=== PATIENT | female | born 1930 | race Caucasian/White ===

== ENCOUNTER 2018-02-13 23:03 | Inpatient (IN) | payer OTHER, BC ==
[~2018-02-13] VITALS: Ht 162.6 cm; Wt 72.6 kg
[~2018-02-13 23:03] MED LIST: CO Q-10100 MG PO; LEVO-T175 MCG PO; LO-DOSE ASPIRIN81 M2 PO; MAG6464 M2 PO; NORVASC10 MG PO; OCUVITE TABLET1 EACH PO; SYNTHROID25 MCG PO; VITAMIN D2000 UNI1 PO; ZESTORETIC 20-1 EAC2 PO; ZOCOR20 MG PO; ZYLOPRIM300 MG PO
[2018-02-14 10:52] VITALS: BP 168/76
[2018-02-14 17:38] VITALS: BP 139/64
[2018-02-14 19:29] VITALS: BP 133/60
[2018-02-14 23:34] VITALS: BP 126/60
[2018-02-15 03:28] VITALS: BP 127/58
[2018-02-15 07:19] VITALS: BP 140/64
[2018-02-15 11:09] VITALS: BP 137/63
[2018-02-15 15:20] VITALS: BP 128/60
[2018-02-16 00:15] VITALS: BP 148/65
[2018-02-16 07:40] VITALS: BP 140/61
[2018-02-16] MEDS ORDERED: LITE COAT ASPI325 M1 PO (10:07)
[2018-02-16] MEDS ORDERED: HEPARIN SO5000 UNIT4 SC (14:30)
[2018-02-16] MEDS ORDERED: THERAGRAN1 TABLET PO (14:30)
[2018-02-16] MEDS ORDERED: PRAVACHOL40 MG PO (14:31)
[2018-02-16] MEDS ORDERED: PERCOCET 10/1 TABLET PO (14:31)
[2018-02-16] MEDS ORDERED: ZOFRAN4 MG PO (14:32)
[2018-02-16] MEDS ORDERED: TYLENOL REGULA325 MG PO (14:33)
[2018-02-16] MEDS ORDERED: NORCO 5/3251 TABLET PO (14:33)
== END 2018-02-16 13:31 | DRG 470 ==
LOC: ENRESERV 23:03 → 2SOUTH 02-14 10:04 → ENRESERV 02-14 16:12 → 3EAST 02-14 17:18
PROC: 0SRC0J9 Replacement of Right Knee Joint with Synthetic Substitute, Cemented, Open Approach (ICD-10-PCS; principal; 2018-02-14)
DX: M17.31 Unilateral post-traumatic osteoarthritis, right knee (principal); S82.141P Displaced bicondylar fracture of right tibia, subsequent encounter for closed fracture with malunion; W01.0XXD Fall on same level from slipping, tripping and stumbling without subsequent striking against object, subsequent encounter; M21.061 Valgus deformity, not elsewhere classified, right knee; M81.0 Age-related osteoporosis without current pathological fracture; I12.9 Hypertensive chronic kidney disease with stage 1 through stage 4 chronic kidney disease, or unspecified chronic kidney disease; N18.9 Chronic kidney disease, unspecified; M10.9 Gout, unspecified; E78.00 Pure hypercholesterolemia, unspecified; E03.9 Hypothyroidism, unspecified; Z60.2 Problems related to living alone; Z91.81 History of falling
CPT/HCPCS: C1713; J0131; J0690; J1170; J1644; J2405; J2795; J3010; J7050; L1820; S0020

== ENCOUNTER 2018-02-16 10:43 | Inpatient (IN) | payer OTHER, BC ==
[~2018-02-16] VITALS: Ht 162.6 cm; Wt 76.5 kg
[~2018-02-16 10:43] MED LIST changes: +LITE COAT ASPI325 M1 PO
[2018-02-16 13:55] VITALS: BP 147/65
[2018-02-16] MEDS ORDERED: HEPARIN SO5000 UNIT4 SC (14:30)
[2018-02-16] MEDS ORDERED: THERAGRAN1 TABLET PO (14:30)
[2018-02-16] MEDS ORDERED: PRAVACHOL40 MG PO (14:31)
[2018-02-16] MEDS ORDERED: PERCOCET 10/1 TABLET PO (14:31)
[2018-02-16] MEDS ORDERED: ZOFRAN4 MG PO (14:32)
[2018-02-16] MEDS ORDERED: TYLENOL REGULA325 MG PO (14:33)
[2018-02-16] MEDS ORDERED: NORCO 5/3251 TABLET PO (14:33)
[2018-02-16 15:21] VITALS: BP 148/67
[2018-02-17 00:11] VITALS: BP 145/66
[2018-02-17 05:33] VITALS: BP 165/74
[2018-02-17 05:58] LABS: BASOPHIL (%) 0.4 % (0-1); EOSINOPHIL (%) 1.5 % (0-5); EOSINOPHIL COUNT 0.1 K/uL (0-0.3); HEMATOCRIT 24.8 % (36.0-46.0); IMMATURE GRANULOCYTE (%) 0.3 % (0.0-0.7); LYMPHOCYTE (%) 14.2 % (15-42); LYMPHOCYTE COUNT 1.3 K/uL (1.0-2.8); MCHC 33.5 G/DL (30.0-36.0); MCV 92.5 FL (83-99); MONOCYTE (%) 14.4 % (3-12); MONOCYTE COUNT 1.3 K/uL (0-0.8); NEUTROPHIL (%) 69.2 % (45-76); NEUTROPHIL COUNT 6.2 K/uL (1.8-6.4); RBC DIS.WIDTH-CV 15.7 % (11.8-14.6); RBC DIS.WIDTH-SD 52.1 % (39-53)
[2018-02-17 06:00] LABS: RED BLOOD COUNT 2.68 M/uL (3.80-5.20)
[2018-02-17 06:01] LABS: HEMOGLOBIN 8.3 G/DL (11.9-15.5); PLATELET COUNT 192 K/uL (156-360)
[2018-02-17 06:20] LABS: ALBUMIN 2.8 G/DL (3.2-4.8); ALKALINE PHOSPHATASE 56 IU/L (3-129); ALT (GPT) 5 IU/L (3-49); AST (GOT) 14 IU/L (2-34); CHLORIDE 102 MEQ/L (99-109); GFR ESTIMATE (CALCULATED) 25 mL/min/; GLUCOSE 75 mg/dL (70-99); POTASSIUM 4.7 MEQ/L (3.7-5.4); SODIUM 135 MEQ/L (136-147); TOTAL BILIRUBIN 0.5 MG/DL (0.0-1.0); TOTAL PROTEIN 5.1 G/DL (6.4-8.3); UREA NITROGEN (BUN) 39 mg/dL (9-23)
[2018-02-17 16:19] VITALS: BP 127/68
[2018-02-18 04:03] VITALS: BP 158/70
[2018-02-18 16:11] VITALS: BP 148/67
[2018-02-18 17:00] LABS: APPEARANCE CLEAR ((CLEAR)); BILIRUBIN NEGATIVE; BLOOD NEGATIVE; COLOR YELLOW ((YELLOW)); GLUCOSE (STRIP) NEGATIVE; KETONES NEGATIVE; LEUKOCYTES NEGATIVE; NITRITE NEGATIVE; PROTEIN (STRIP) NEGATIVE; SPECIFIC GRAVITY 1.011 (1.000-1.030); UROBILINOGEN 0.2 MG/DL (0.2-1.0)
[2018-02-18 17:31] LABS: UR CREATININE CONCENTRATION 68.5 MG/DL
[2018-02-19 04:22] VITALS: BP 132/62
[2018-02-19 05:33] LABS: BASOPHIL (%) 0.2 % (0-1); EOSINOPHIL (%) 2.5 % (0-5); EOSINOPHIL COUNT 0.2 K/uL (0-0.3); HEMATOCRIT 24.3 % (36.0-46.0); HEMOGLOBIN 7.8 G/DL (11.9-15.5); IMMATURE GRANULOCYTE (%) 0.6 % (0.0-0.7); LYMPHOCYTE (%) 12.3 % (15-42); MCH 29.9 PG (29.0-34.0); MCHC 32.1 G/DL (30.0-36.0); MCV 93.1 FL (83-99); MONOCYTE (%) 10.6 % (3-12); MONOCYTE COUNT 0.9 K/uL (0-0.8); NEUTROPHIL (%) 73.8 % (45-76); NEUTROPHIL COUNT 6.1 K/uL (1.8-6.4); RBC DIS.WIDTH-CV 15.4 % (11.8-14.6); RBC DIS.WIDTH-SD 52.5 % (39-53); RED BLOOD COUNT 2.61 M/uL (3.80-5.20); WHITE BLOOD COUNT 8.2 K/uL (4.1-10.2)
[2018-02-19 05:35] LABS: PLATELET COUNT 252 K/uL (156-360)
[2018-02-19 06:47] LABS: ALBUMIN 2.6 G/DL (3.2-4.8); ALKALINE PHOSPHATASE 66 IU/L (3-129); ALT (GPT) 7 IU/L (3-49); CHLORIDE 102 MEQ/L (99-109); CREATININE 2.2 MG/DL (0.6-1.3); GFR ESTIMATE (CALCULATED) 22 mL/min/; MAGNESIUM 2.3 mg/dl (1.3-2.7); SODIUM 133 MEQ/L (136-147); TOTAL BILIRUBIN 0.5 MG/DL (0.0-1.0); TOTAL PROTEIN 5.3 G/DL (6.4-8.3); UREA NITROGEN (BUN) 48 mg/dL (9-23); URIC ACID 5.6 mg/dL (3.1-9.2)
[2018-02-19 06:48] LABS: GLUCOSE 111 mg/dL (70-99)
[2018-02-19 07:31] LABS: POTASSIUM 5.3 MEQ/L (3.7-5.4)
[2018-02-19 15:48] VITALS: BP 150/67
[2018-02-20] VITALS (9 sets, daily range): BP systolic 127–156; BP diastolic 59–69
[2018-02-20 06:02] LABS: BASOPHIL (%) 0.4 % (0-1); EOSINOPHIL (%) 3.2 % (0-5); EOSINOPHIL COUNT 0.3 K/uL (0-0.3); HEMATOCRIT 22.4 % (36.0-46.0); HEMOGLOBIN 7.3 G/DL (11.9-15.5); IMMATURE GRANULOCYTE (%) 0.2 % (0.0-0.7); LYMPHOCYTE (%) 12.1 % (15-42); MCH 30.3 PG (29.0-34.0); MCHC 32.6 G/DL (30.0-36.0); MCV 92.9 FL (83-99); MONOCYTE (%) 10.3 % (3-12); MONOCYTE COUNT 0.8 K/uL (0-0.8); NEUTROPHIL (%) 73.8 % (45-76); PLATELET COUNT 228 K/uL (156-360); RBC DIS.WIDTH-CV 15.1 % (11.8-14.6); RBC DIS.WIDTH-SD 51.9 % (39-53); RED BLOOD COUNT 2.41 M/uL (3.80-5.20); WHITE BLOOD COUNT 8.1 K/uL (4.1-10.2)
[2018-02-20 06:36] LABS: ALBUMIN 2.6 G/DL (3.4-5.0); CHLORIDE 101 MEQ/L (99-109); CREATININE 2.3 MG/DL (0.6-1.3); GFR ESTIMATE (CALCULATED) 21 mL/min/; GLOBULINS 2.7 G/DL (2.3-3.5); GLUCOSE 89 mg/dL (70-99); POTASSIUM 4.9 MEQ/L (3.7-5.4); SODIUM 130 MEQ/L (136-147); TOTAL PROTEIN 5.3 G/DL (6.4-8.2); UREA NITROGEN (BUN) 56 mg/dL (9-23)
[2018-02-20 07:03] LABS: IRON 11 MCG/DL (35-150); TRANSFERRIN (TIBC) 140.5 mg/dL (215-380); TRANSFERRIN SATUR. 8 % (20-55)
[2018-02-20 08:53] LABS: FERRITIN 71 NG/ML (10-291)
[2018-02-20 10:26] LABS: FOLIC ACID (FOLATE) > 22.0 NG/ML (5.0-22.0)
[2018-02-20 23:32] LABS: STOOL OCCULT BLD 1ST SPECIMEN NEGATIVE
[2018-02-21 05:10] VITALS: BP 134/58
[2018-02-21 06:57] LABS: BASOPHIL (%) 0.3 % (0-1); EOSINOPHIL (%) 0.4 % (0-5); HEMATOCRIT 28.4 % (36.0-46.0); IMMATURE GRANULOCYTE (%) 0.4 % (0.0-0.7); LYMPHOCYTE (%) 4.5 % (15-42); LYMPHOCYTE COUNT 0.5 K/uL (1.0-2.8); MCH 30.6 PG (29.0-34.0); MCHC 34.2 G/DL (30.0-36.0); MCV 89.6 FL (83-99); MONOCYTE (%) 11.8 % (3-12); MONOCYTE COUNT 1.3 K/uL (0-0.8); NEUTROPHIL (%) 82.6 % (45-76); NEUTROPHIL COUNT 9.3 K/uL (1.8-6.4); PLATELET COUNT 257 K/uL (156-360); RBC DIS.WIDTH-CV 14.8 % (11.8-14.6); RBC DIS.WIDTH-SD 48.8 % (39-53); WHITE BLOOD COUNT 11.2 K/uL (4.1-10.2)
[2018-02-21 06:58] LABS: HEMOGLOBIN 9.7 G/DL (11.9-15.5); RED BLOOD COUNT 3.17 M/uL (3.80-5.20)
[2018-02-21 08:42] LABS: CHLORIDE 100 MEQ/L (99-109); CREATININE 2.2 MG/DL (0.6-1.3); GFR ESTIMATE (CALCULATED) 22 mL/min/; PHOSPHORUS 2.7 mg/dL (2.5-4.9); POTASSIUM 5.6 MEQ/L (3.7-5.4); SODIUM 129 MEQ/L (136-147); THYROTROPIN (TSH) 1.2 MIU/L (0.4-5.5); UREA NITROGEN (BUN) 69 mg/dL (9-23)
[2018-02-21 08:43] LABS: GLUCOSE 148 mg/dL (70-99); MAGNESIUM 2.8 mg/dl (1.3-2.7)
[2018-02-21 15:46] VITALS: BP 99/48
[2018-02-21 16:44] VITALS: BP 128/56
[2018-02-21 20:47] VITALS: BP 128/60
[2018-02-22 05:36] VITALS: BP 145/58
[2018-02-22 06:19] LABS: BASOPHIL (%) 0.4 % (0-1); EOSINOPHIL (%) 2.4 % (0-5); EOSINOPHIL COUNT 0.3 K/uL (0-0.3); HEMATOCRIT 28.2 % (36.0-46.0); HEMOGLOBIN 9.2 G/DL (11.9-15.5); IMMATURE GRANULOCYTE (%) 0.3 % (0.0-0.7); LYMPHOCYTE (%) 7.7 % (15-42); LYMPHOCYTE COUNT 0.8 K/uL (1.0-2.8); MCH 29.8 PG (29.0-34.0); MCHC 32.6 G/DL (30.0-36.0); MCV 91.3 FL (83-99); MONOCYTE (%) 14.4 % (3-12); MONOCYTE COUNT 1.5 K/uL (0-0.8); NEUTROPHIL (%) 74.8 % (45-76); NEUTROPHIL COUNT 7.7 K/uL (1.8-6.4); PLATELET COUNT 295 K/uL (156-360); RBC DIS.WIDTH-SD 50.1 % (39-53); RED BLOOD COUNT 3.09 M/uL (3.80-5.20); WHITE BLOOD COUNT 10.3 K/uL (4.1-10.2)
[2018-02-22 06:38] LABS: CHLORIDE 99 MEQ/L (99-109); GFR ESTIMATE (CALCULATED) 18 mL/min/; SODIUM 130 MEQ/L (136-147); UREA NITROGEN (BUN) 81 mg/dL (9-23)
[2018-02-22 06:39] LABS: CREATININE 2.7 MG/DL (0.6-1.3); GLUCOSE 90 mg/dL (70-99)
[2018-02-22 13:35] LABS: ALBUMIN 2.53 G/DL (3.6-4.9); ALPHA-1 GLOBULIN 0.55 G/DL (0.15-0.40); ALPHA-2 GLOBULIN 0.89 G/DL (0.45-0.85); GAMMA-GLOBULIN 0.54 G/DL (0.60-1.35)
[2018-02-22 15:44] VITALS: BP 102/50
[2018-02-22 22:00] VITALS: BP 113/56
[2018-02-23 05:09] VITALS: BP 136/62
[2018-02-23 06:34] LABS: BASOPHIL (%) 0.4 % (0-1); EOSINOPHIL (%) 2.2 % (0-5); EOSINOPHIL COUNT 0.2 K/uL (0-0.3); HEMATOCRIT 25.6 % (36.0-46.0); HEMOGLOBIN 8.5 G/DL (11.9-15.5); IMMATURE GRANULOCYTE (%) 0.4 % (0.0-0.7); LYMPHOCYTE (%) 8.6 % (15-42); LYMPHOCYTE COUNT 0.9 K/uL (1.0-2.8); MCH 30.2 PG (29.0-34.0); MCHC 33.2 G/DL (30.0-36.0); MCV 91.1 FL (83-99); MONOCYTE (%) 13.3 % (3-12); MONOCYTE COUNT 1.4 K/uL (0-0.8); NEUTROPHIL (%) 75.1 % (45-76); NEUTROPHIL COUNT 7.8 K/uL (1.8-6.4); PLATELET COUNT 286 K/uL (156-360); RBC DIS.WIDTH-CV 14.6 % (11.8-14.6); RBC DIS.WIDTH-SD 49.2 % (39-53); RED BLOOD COUNT 2.81 M/uL (3.80-5.20); WHITE BLOOD COUNT 10.4 K/uL (4.1-10.2)
[2018-02-23 07:04] LABS: CHLORIDE 101 MEQ/L (99-109); CREATININE 2.9 MG/DL (0.6-1.3); GFR ESTIMATE (CALCULATED) 16 mL/min/; GLUCOSE 78 mg/dL (70-99); POTASSIUM 4.9 MEQ/L (3.7-5.4); SODIUM 129 MEQ/L (136-147); UREA NITROGEN (BUN) 91 mg/dL (9-23)
[2018-02-23 07:05] LABS: PHOSPHORUS 4.6 mg/dL (2.5-4.9)
== END 2018-02-23 11:51 | DRG 560 ==
LOC: 3WEST 10:43 → CANRESERV 02-23 11:15 → ENRESERV 02-23 11:15 → 3WEST 02-23 11:51 → ENPENDDIS 03-03
PROVIDERS: Internal Medicine Nephrology; Psychiatry & Neurology Neurology
PROC: F07M0ZZ Range of Motion and Joint Mobility Treatment of Musculoskeletal System - Whole Body (ICD-10-PCS; principal; 2018-02-16)
PROC: 30233N1 Transfusion of Nonautologous Red Blood Cells into Peripheral Vein, Percutaneous Approach (ICD-10-PCS; 2018-02-20)
DX: Z47.1 Aftercare following joint replacement surgery (principal); Z96.651 Presence of right artificial knee joint; R27.0 Ataxia, unspecified; G89.18 Other acute postprocedural pain; M79.604 Pain in right leg; N17.8 Other acute kidney failure; N14.1 Nephropathy induced by other drugs, medicaments and biological substances; T50.2X5A Adverse effect of carbonic-anhydrase inhibitors, benzothiadiazides and other diuretics, initial encounter; D62 Acute posthemorrhagic anemia; D50.9 Iron deficiency anemia, unspecified; I12.9 Hypertensive chronic kidney disease with stage 1 through stage 4 chronic kidney disease, or unspecified chronic kidney disease; N18.3 Chronic kidney disease, stage 3 (moderate); E87.1 Hypo-osmolality and hyponatremia; D63.1 Anemia in chronic kidney disease; E87.5 Hyperkalemia; R41.0 Disorientation, unspecified; T40.2X5A Adverse effect of other opioids, initial encounter; E03.9 Hypothyroidism, unspecified; M10.9 Gout, unspecified; M17.31 Unilateral post-traumatic osteoarthritis, right knee; S82.14 Bicondylar fracture of tibia; R01.1 Cardiac murmur, unspecified; E78.5 Hyperlipidemia, unspecified; I25.10 Atherosclerotic heart disease of native coronary artery without angina pectoris; K59.00 Constipation, unspecified; I65.29 Occlusion and stenosis of unspecified carotid artery; Z79.82 Long term (current) use of aspirin; Z90.710 Acquired absence of both cervix and uterus; Z91.81 History of falling
CPT/HCPCS: 76770; 80048; 80053; 81003; 82272; 82533 91; 82550; 82570; 82607; 82728; 82746; 83540; 83735; 83883 90; 83935; 84100; 84156; 84165; 84300; 84443; 84466; 84550; 84999; 85025; 86850; 86900; 86901; 86920; 87493; 93971; 97110 GO; 97530 GP; J1644; J1756; J7030; J7050; P9016

== ENCOUNTER 2018-02-23 10:28 | Inpatient (IN) | payer OTHER, BC ==
[~2018-02-23] VITALS: Ht 162.6 cm; Wt 79.8 kg
[~2018-02-23 10:28] MED LIST changes: +HEPARIN SO5000 UNIT4 SC; +NORCO 5/3251 TABLET PO; +PERCOCET 10/1 TABLET PO; +PRAVACHOL40 MG PO; +THERAGRAN1 TABLET PO; +TYLENOL REGULA325 MG PO; +ZOFRAN4 MG PO
[2018-02-23 12:47] LABS: STOOL OCCULT BLD 1ST SPECIMEN POSITIVE
[2018-02-23 14:07] VITALS: BP 112/56
[2018-02-23 17:05] LABS: BASOPHIL (%) 0.4 % (0-1); BASOPHIL COUNT 0.1 K/uL (0-0.1); EOSINOPHIL (%) 1.2 % (0-5); EOSINOPHIL COUNT 0.2 K/uL (0-0.3); HEMATOCRIT 28.6 % (36.0-46.0); HEMOGLOBIN 9.4 G/DL (11.9-15.5); IMMATURE GRANULOCYTE (%) 0.6 % (0.0-0.7); LYMPHOCYTE (%) 7.5 % (15-42); LYMPHOCYTE COUNT 0.9 K/uL (1.0-2.8); MCHC 32.9 G/DL (30.0-36.0); MCV 91.4 FL (83-99); MONOCYTE (%) 8.9 % (3-12); MONOCYTE COUNT 1.1 K/uL (0-0.8); NEUTROPHIL (%) 81.4 % (45-76); NEUTROPHIL COUNT 10.1 K/uL (1.8-6.4); PLATELET COUNT 343 K/uL (156-360); RBC DIS.WIDTH-CV 14.7 % (11.8-14.6); RBC DIS.WIDTH-SD 49.1 % (39-53); RED BLOOD COUNT 3.13 M/uL (3.80-5.20); WHITE BLOOD COUNT 12.4 K/uL (4.1-10.2)
[2018-02-23 19:48] VITALS: BP 110/52
[2018-02-23 23:38] VITALS: BP 107/52
[2018-02-24 04:32] VITALS: BP 98/47
[2018-02-24 06:18] LABS: BASOPHIL (%) 0.4 % (0-1); EOSINOPHIL (%) 1.9 % (0-5); EOSINOPHIL COUNT 0.2 K/uL (0-0.3); HEMOGLOBIN 8.2 G/DL (11.9-15.5); IMMATURE GRANULOCYTE (%) 0.8 % (0.0-0.7); MCH 29.9 PG (29.0-34.0); MCHC 32.8 G/DL (30.0-36.0); MCV 91.2 FL (83-99); MONOCYTE (%) 9.6 % (3-12); MONOCYTE COUNT 0.9 K/uL (0-0.8); NEUTROPHIL (%) 76.3 % (45-76); NEUTROPHIL COUNT 7.2 K/uL (1.8-6.4); PLATELET COUNT 286 K/uL (156-360); RBC DIS.WIDTH-CV 14.8 % (11.8-14.6); RED BLOOD COUNT 2.74 M/uL (3.80-5.20); WHITE BLOOD COUNT 9.5 K/uL (4.1-10.2)
[2018-02-24 06:38] LABS: CHLORIDE 101 MEQ/L (99-109); GFR ESTIMATE (CALCULATED) 16 mL/min/; GLUCOSE 80 mg/dL (70-99); POTASSIUM 4.9 MEQ/L (3.7-5.4); SODIUM 131 MEQ/L (136-147); UREA NITROGEN (BUN) 95 mg/dL (9-23)
[2018-02-24 08:18] VITALS: BP 132/60
[2018-02-24 14:12] VITALS: BP 125/60
[2018-02-24 16:15] VITALS: BP 128/60
[2018-02-24 20:27] VITALS: BP 120/56
[2018-02-25] VITALS (7 sets, daily range): BP systolic 114–123; BP diastolic 56–66
[2018-02-25 06:41] LABS: BASOPHIL (%) 0.5 % (0-1); BASOPHIL COUNT 0.1 K/uL (0-0.1); EOSINOPHIL (%) 1.6 % (0-5); EOSINOPHIL COUNT 0.2 K/uL (0-0.3); HEMATOCRIT 26.7 % (36.0-46.0); HEMOGLOBIN 8.8 G/DL (11.9-15.5); IMMATURE GRANULOCYTE (%) 1.1 % (0.0-0.7); LYMPHOCYTE (%) 9.5 % (15-42); LYMPHOCYTE COUNT 0.9 K/uL (1.0-2.8); MCH 30.1 PG (29.0-34.0); MCV 91.4 FL (83-99); MONOCYTE COUNT 0.7 K/uL (0-0.8); NEUTROPHIL (%) 80.3 % (45-76); NEUTROPHIL COUNT 7.5 K/uL (1.8-6.4); PLATELET COUNT 336 K/uL (156-360); RBC DIS.WIDTH-CV 14.8 % (11.8-14.6); RBC DIS.WIDTH-SD 50.4 % (39-53); RED BLOOD COUNT 2.92 M/uL (3.80-5.20); WHITE BLOOD COUNT 9.3 K/uL (4.1-10.2)
[2018-02-25 06:45] LABS: INTER. NORMALIZED RATIO 1.1
[2018-02-25 07:04] LABS: CHLORIDE 102 MEQ/L (99-109); CREATININE 2.7 MG/DL (0.6-1.3); GFR ESTIMATE (CALCULATED) 18 mL/min/; GLUCOSE 78 mg/dL (70-99); MAGNESIUM 2.8 mg/dl (1.3-2.7); POTASSIUM 4.8 MEQ/L (3.7-5.4); SODIUM 132 MEQ/L (136-147); UREA NITROGEN (BUN) 92 mg/dL (9-23)
[2018-02-25 07:06] LABS: C4 COMPLEMENT 29 MG/DL (10-40)
[2018-02-25 07:07] LABS: ALBUMIN 2.4 G/DL (3.2-4.8); ALKALINE PHOSPHATASE 65 IU/L (3-129); ALT (GPT) 9 IU/L (3-49); AST (GOT) 13 IU/L (2-34); CHLORIDE 102 MEQ/L (99-109); CREATININE 2.7 MG/DL (0.6-1.3); GFR ESTIMATE (CALCULATED) 18 mL/min/; GLUCOSE 79 mg/dL (70-99); POTASSIUM 4.8 MEQ/L (3.7-5.4); SODIUM 133 MEQ/L (136-147); TOTAL BILIRUBIN 0.4 MG/DL (0.0-1.0); TOTAL PROTEIN 4.7 G/DL (6.4-8.3); UREA NITROGEN (BUN) 92 mg/dL (9-23)
[2018-02-26 03:03] VITALS: BP 120/58
[2018-02-26 06:12] LABS: BASOPHIL (%) 0.5 % (0-1); BASOPHIL COUNT 0.1 K/uL (0-0.1); EOSINOPHIL (%) 1.3 % (0-5); EOSINOPHIL COUNT 0.1 K/uL (0-0.3); HEMATOCRIT 25.4 % (36.0-46.0); HEMOGLOBIN 8.6 G/DL (11.9-15.5); IMMATURE GRANULOCYTE (%) 2.7 % (0.0-0.7); LYMPHOCYTE (%) 12.4 % (15-42); LYMPHOCYTE COUNT 1.2 K/uL (1.0-2.8); MCH 30.9 PG (29.0-34.0); MCHC 33.9 G/DL (30.0-36.0); MCV 91.4 FL (83-99); MONOCYTE (%) 9.5 % (3-12); NEUTROPHIL (%) 73.6 % (45-76); NEUTROPHIL COUNT 7.4 K/uL (1.8-6.4); PLATELET COUNT 314 K/uL (156-360); RBC DIS.WIDTH-CV 14.7 % (11.8-14.6); RBC DIS.WIDTH-SD 48.8 % (39-53); RED BLOOD COUNT 2.78 M/uL (3.80-5.20)
[2018-02-26 06:35] LABS: ALBUMIN 2.5 G/DL (3.2-4.8); CHLORIDE 103 MEQ/L (99-109); CREATININE 2.5 MG/DL (0.6-1.3); GFR ESTIMATE (CALCULATED) 19 mL/min/; GLUCOSE 86 mg/dL (70-99); PHOSPHORUS 3.8 mg/dL (2.5-4.9); POTASSIUM 4.8 MEQ/L (3.7-5.4); SODIUM 130 MEQ/L (136-147); UREA NITROGEN (BUN) 85 mg/dL (9-23)
[2018-02-26 08:04] VITALS: BP 150/65
[2018-02-26 15:46] VITALS: BP 123/65
[2018-02-26 19:51] VITALS: BP 120/56
[2018-02-27 00:28] VITALS: BP 150/67
[2018-02-27 06:23] LABS: HEMATOCRIT 26.7 % (36.0-46.0); HEMOGLOBIN 8.9 G/DL (11.9-15.5); MCH 30.7 PG (29.0-34.0); MCHC 33.3 G/DL (30.0-36.0); MCV 92.1 FL (83-99); PLATELET COUNT 334 K/uL (156-360); RBC DIS.WIDTH-CV 15.1 % (11.8-14.6); RBC DIS.WIDTH-SD 50.7 % (39-53); WHITE BLOOD COUNT 10.8 K/uL (4.1-10.2)
[2018-02-27 06:49] LABS: ALBUMIN 2.5 G/DL (3.2-4.8); CHLORIDE 105 MEQ/L (99-109); CREATININE 2.2 MG/DL (0.6-1.3); GFR ESTIMATE (CALCULATED) 22 mL/min/; GLUCOSE 86 mg/dL (70-99); IRON 43 MCG/DL (35-150); PHOSPHORUS 3.1 mg/dL (2.5-4.9); POTASSIUM 4.8 MEQ/L (3.7-5.4); SODIUM 135 MEQ/L (136-147); TRANSFERRIN SATUR. 32 % (20-55); UREA NITROGEN (BUN) 75 mg/dL (9-23)
[2018-02-27 06:58] LABS: ANISOCYTOSIS 1+; ATYPICAL LYMPHOCYTE 0.9 %; BASOPH.STIPPLING 1+; BASOPHILS 1.7 %; EOSINOPHIL ABS CT 0.2; EOSINOPHILS 1.7 % (0-5.0); LYMPHOCYTES 15.5 % (15.0-45.0); MACROCYTES 1+; METAMYELOCYTES 0.9 %; MONOCYTES 3.5 % (0-9.0); MYELOCYTES 1.7 %; PLAT.SUFFICIENCY ADEQUATE; POIKILOCYTOSIS 1+; SEG.NEUTROPHILS 74.1 % (46.0-76.0)
[2018-02-27 08:58] VITALS: BP 179/68
[2018-02-27 17:00] VITALS: BP 151/62
[2018-02-27 17:28] LABS: GLOMERULAR BASEMENT MEMB ABY+ <1.0 AI (<1.0)
[2018-02-27 23:55] VITALS: BP 140/64
[2018-02-28 06:59] LABS: BASOPHIL (%) 0.6 % (0-1); BASOPHIL COUNT 0.1 K/uL (0-0.1); EOSINOPHIL COUNT 0.1 K/uL (0-0.3); HEMATOCRIT 27.4 % (36.0-46.0); HEMOGLOBIN 9.1 G/DL (11.9-15.5); IMMATURE GRANULOCYTE (%) 4.6 % (0.0-0.7); LYMPHOCYTE (%) 11.3 % (15-42); LYMPHOCYTE COUNT 1.4 K/uL (1.0-2.8); MCH 30.4 PG (29.0-34.0); MCHC 33.2 G/DL (30.0-36.0); MCV 91.6 FL (83-99); MONOCYTE (%) 11.5 % (3-12); MONOCYTE COUNT 1.4 K/uL (0-0.8); NEUTROPHIL COUNT 8.6 K/uL (1.8-6.4); PLATELET COUNT 370 K/uL (156-360); RBC DIS.WIDTH-CV 15.3 % (11.8-14.6); RBC DIS.WIDTH-SD 50.3 % (39-53); RED BLOOD COUNT 2.99 M/uL (3.80-5.20)
[2018-02-28 07:22] LABS: ALBUMIN 2.6 G/DL (3.2-4.8); CHLORIDE 108 MEQ/L (99-109); GFR ESTIMATE (CALCULATED) 30 mL/min/; GLUCOSE 82 mg/dL (70-99); PHOSPHORUS 2.8 mg/dL (2.5-4.9); POTASSIUM 5.3 MEQ/L (3.7-5.4); SODIUM 139 MEQ/L (136-147); UREA NITROGEN (BUN) 53 mg/dL (9-23)
[2018-02-28 07:25] LABS: CREATININE 1.7 MG/DL (0.6-1.3)
[2018-02-28 07:32] VITALS: BP 143/61
[2018-02-28 15:55] VITALS: BP 140/59
[2018-02-28] MEDS ORDERED: CARVEDILOL12.5 MG PO (17:03)
[2018-02-28] MEDS ORDERED: AMLODIPINE BESYL5 MG PO (17:04)
[2018-02-28] MEDS ORDERED: PANTOPRAZOLE SO40 MG PO (17:05)
[2018-02-28] MEDS ORDERED: TYLENOL REGULA325 MG PO (17:05)
[2018-02-28] MEDS ORDERED: OXYCODONE HCL5 MG PO (17:05)
[2018-02-28 22:47] LABS: Neutrophil Cytoplasmic Aby Negative (Negative)
== END 2018-02-28 17:44 | DRG 378 ==
LOC: ENRESERV 10:28 → 3EAST 10:28 → ENRESERV 11:15 → 3EAST 12:00
PROVIDERS: Internal Medicine Gastroenterology; Internal Medicine Nephrology
PROC: 0DB68ZX Excision of Stomach, Via Natural or Artificial Opening Endoscopic, Diagnostic (ICD-10-PCS; principal; 2018-02-24)
DX: K25.4 Chronic or unspecified gastric ulcer with hemorrhage (principal); D62 Acute posthemorrhagic anemia; E87.1 Hypo-osmolality and hyponatremia; N17.9 Acute kidney failure, unspecified; K20.8 Other esophagitis; M10.9 Gout, unspecified; D50.0 Iron deficiency anemia secondary to blood loss (chronic); E03.9 Hypothyroidism, unspecified; E78.5 Hyperlipidemia, unspecified; I12.9 Hypertensive chronic kidney disease with stage 1 through stage 4 chronic kidney disease, or unspecified chronic kidney disease; I25.10 Atherosclerotic heart disease of native coronary artery without angina pectoris; I65.29 Occlusion and stenosis of unspecified carotid artery; K44.9 Diaphragmatic hernia without obstruction or gangrene; M19.90 Unspecified osteoarthritis, unspecified site; N18.3 Chronic kidney disease, stage 3 (moderate); K29.61 Other gastritis with bleeding; E66.9 Obesity, unspecified; W19.XXXS Unspecified fall, sequela; R19.5 Other fecal abnormalities; Z90.710 Acquired absence of both cervix and uterus; Z96.651 Presence of right artificial knee joint; S82.14 Bicondylar fracture of tibia; Z68.30 Body mass index [BMI] 30.0-30.9, adult
CPT/HCPCS: 80048; 80053; 80069; 82272; 83520 90; 83540; 83735; 84100; 84466; 85025; 85025 91; 85027; 85610; 86021 90; 86038; 86160; 86235; 88305; 88342 TC; C9113; J7030

== ENCOUNTER 2018-02-28 16:35 | Inpatient (IN) | payer OTHER, BC ==
[~2018-02-28] VITALS: Ht 162.6 cm; Wt 76.9 kg
[2018-02-28] MEDS ORDERED: CARVEDILOL12.5 MG PO (17:03)
[2018-02-28] MEDS ORDERED: AMLODIPINE BESYL5 MG PO (17:04)
[2018-02-28] MEDS ORDERED: TYLENOL REGULA325 MG PO (17:05)
[2018-02-28] MEDS ORDERED: PANTOPRAZOLE SO40 MG PO (17:05)
[2018-02-28] MEDS ORDERED: OXYCODONE HCL5 MG PO (17:05)
[2018-02-28 18:15] VITALS: BP 153/67
[2018-02-28 23:00] VITALS: BP 157/70
[2018-03-01 05:50] LABS: HEMATOCRIT 27.1 % (36.0-46.0); HEMOGLOBIN 8.8 G/DL (11.9-15.5); MCH 29.9 PG (29.0-34.0); MCHC 32.5 G/DL (30.0-36.0); MCV 92.2 FL (83-99); PLATELET COUNT 329 K/uL (156-360); RBC DIS.WIDTH-CV 15.5 % (11.8-14.6); RBC DIS.WIDTH-SD 50.7 % (39-53); RED BLOOD COUNT 2.94 M/uL (3.80-5.20); WHITE BLOOD COUNT 11.2 K/uL (4.1-10.2)
[2018-03-01 06:02] VITALS: BP 156/65
[2018-03-01 06:13] LABS: ALBUMIN 2.7 G/DL (3.2-4.8); ALKALINE PHOSPHATASE 90 IU/L (3-129); ALT (GPT) 11 IU/L (3-49); AST (GOT) 14 IU/L (2-34); CHLORIDE 108 MEQ/L (99-109); CREATININE 1.6 MG/DL (0.6-1.3); GFR ESTIMATE (CALCULATED) 32 mL/min/; GLUCOSE 85 mg/dL (70-99); POTASSIUM 4.7 MEQ/L (3.7-5.4); SODIUM 139 MEQ/L (136-147); TOTAL BILIRUBIN 0.4 MG/DL (0.0-1.0); TOTAL PROTEIN 4.8 G/DL (6.4-8.3); UREA NITROGEN (BUN) 43 mg/dL (9-23)
[2018-03-01 15:10] VITALS: BP 167/64
[2018-03-02 05:37] VITALS: BP 163/66
[2018-03-02 15:46] VITALS: BP 171/73
[2018-03-03 05:29] VITALS: BP 163/79
[2018-03-03 06:55] LABS: BASOPHIL (%) 0.3 % (0-1); EOSINOPHIL (%) 0.9 % (0-5); EOSINOPHIL COUNT 0.1 K/uL (0-0.3); HEMATOCRIT 27.1 % (36.0-46.0); LYMPHOCYTE (%) 9.6 % (15-42); LYMPHOCYTE COUNT 1.1 K/uL (1.0-2.8); MCH 30.7 PG (29.0-34.0); MCHC 33.2 G/DL (30.0-36.0); MCV 92.5 FL (83-99); MONOCYTE (%) 9.9 % (3-12); MONOCYTE COUNT 1.1 K/uL (0-0.8); NEUTROPHIL (%) 78.3 % (45-76); PLATELET COUNT 310 K/uL (156-360); RBC DIS.WIDTH-CV 15.7 % (11.8-14.6); RBC DIS.WIDTH-SD 52.8 % (39-53); RED BLOOD COUNT 2.93 M/uL (3.80-5.20); WHITE BLOOD COUNT 11.5 K/uL (4.1-10.2)
[2018-03-03 07:17] LABS: CHLORIDE 108 MEQ/L (99-109); CREATININE 1.3 MG/DL (0.6-1.3); GFR ESTIMATE (CALCULATED) 41 mL/min/; GLUCOSE 88 mg/dL (70-99); POTASSIUM 4.3 MEQ/L (3.7-5.4); SODIUM 139 MEQ/L (136-147); UREA NITROGEN (BUN) 22 mg/dL (9-23)
[2018-03-03 14:44] VITALS: BP 169/66
[2018-03-04 05:44] VITALS: BP 151/61
[2018-03-04 15:38] VITALS: BP 141/92
[2018-03-04 21:00] VITALS: BP 153/67
[2018-03-05 04:25] VITALS: BP 139/64
[2018-03-05 15:46] VITALS: BP 161/65
[2018-03-06 06:06] VITALS: BP 142/65
[2018-03-06 06:19] LABS: CHLORIDE 105 MEQ/L (99-109); CREATININE 1.4 MG/DL (0.6-1.3); GFR ESTIMATE (CALCULATED) 38 mL/min/; GLUCOSE 88 mg/dL (70-99); POTASSIUM 3.6 MEQ/L (3.7-5.4); SODIUM 139 MEQ/L (136-147); UREA NITROGEN (BUN) 23 mg/dL (9-23)
[2018-03-06] MEDS ORDERED: FUROSEMIDE20 MG PO (10:39)
[2018-03-06] MEDS ORDERED: CARVEDILOL25 MG PO (10:39)
[2018-03-06] MEDS ORDERED: TYLENOL REGULA325 MG PO (10:39)
[2018-03-06] MEDS ORDERED: KLOR-CON M1010 MEQ PO ×2 (10:39→11:11)
[2018-03-06] MEDS ORDERED: PANTOPRAZOLE SO40 MG PO (10:39)
[2018-03-06] MEDS ORDERED: APRESOLINE10 MG PO (10:41)
== END 2018-03-06 11:25 | DRG 559 ==
LOC: 3WEST 16:35
PROVIDERS: Internal Medicine Nephrology; Physical Medicine & Rehabilitation Pain Medicine
PROC: F07M0ZZ Range of Motion and Joint Mobility Treatment of Musculoskeletal System - Whole Body (ICD-10-PCS; principal; 2018-02-28)
DX: Z47.1 Aftercare following joint replacement surgery (principal); Z96.651 Presence of right artificial knee joint; R26.2 Difficulty in walking, not elsewhere classified; E87.1 Hypo-osmolality and hyponatremia; D62 Acute posthemorrhagic anemia; N17.9 Acute kidney failure, unspecified; I12.9 Hypertensive chronic kidney disease with stage 1 through stage 4 chronic kidney disease, or unspecified chronic kidney disease; N18.3 Chronic kidney disease, stage 3 (moderate); E03.9 Hypothyroidism, unspecified; M17.31 Unilateral post-traumatic osteoarthritis, right knee; D50.9 Iron deficiency anemia, unspecified; D72.829 Elevated white blood cell count, unspecified; E77.8 Other disorders of glycoprotein metabolism; E83.51 Hypocalcemia; E87.0 Hyperosmolality and hypernatremia; I65.29 Occlusion and stenosis of unspecified carotid artery; K20.9 Esophagitis, unspecified; K25.4 Chronic or unspecified gastric ulcer with hemorrhage; K29.60 Other gastritis without bleeding; K44.9 Diaphragmatic hernia without obstruction or gangrene; K80.20 Calculus of gallbladder without cholecystitis without obstruction; M10.9 Gout, unspecified; E78.5 Hyperlipidemia, unspecified; G89.29 Other chronic pain; M25.512 Pain in left shoulder; R79.89 Other specified abnormal findings of blood chemistry; M19.072 Primary osteoarthritis, left ankle and foot; H91.90 Unspecified hearing loss, unspecified ear; Z60.2 Problems related to living alone
CPT/HCPCS: 73560; 80048; 80053; 85025; 85027; 87493; 97110 GO; 97530 GP